=== PATIENT | female | born 1980 | race Two or more races ===

== ENCOUNTER 2017-01-24 13:30 | Outpatient (CLI) | payer OTHER ==
[2017-01-24 14:06] VITALS: BP 121/73
[2017-01-24] MEDS ORDERED: ZOLOFT50 MG PO (14:44)
[2017-01-24] MEDS ORDERED: IRON325 MG PO (14:44)
[2017-01-24 21:59] LABS: CANDIDA DNA PROBE NEGATIVE
[2017-01-24 22:00] LABS: GARDNERELLA DNA PROBE NEGATIVE; INTERNAL CONTROL VALID? YES
== END 2017-01-24 15:50 | disposition home or self-care (01) ==
LOC: LDRP-OP → 2WEST 13:31 → LDRP-OP 05-20 13:54
PROVIDERS: Advanced Practice Midwife
DX: O23.592 Infection of other part of genital tract in pregnancy, second trimester (principal); N76.0 Acute vaginitis; Z3A.27 27 weeks gestation of pregnancy
CPT/HCPCS: 59025; 81003; 87086; 87480; 87510; 87660; G0378

== ENCOUNTER 2017-04-17 15:05 | Outpatient (CLI) | payer OTHER ==
[~2017-04-17] VITALS: Ht 165.1 cm; Wt 101.2 kg
[~2017-04-17 15:05] MED LIST: IRON325 MG PO; ZOLOFT50 MG PO
[2017-04-17 15:46] VITALS: BP 120/74
[2017-04-17 16:21] LABS: EOSINOPHIL (%) 0.4 % (0-5); HEMATOCRIT 32.8 % (36.0-46.0); IMMATURE GRANULOCYTE (%) 0.5 % (0.0-0.7); LYMPHOCYTE COUNT 1.6 K/uL (1.0-2.8); MCH 30.2 PG (29.0-34.0); MCHC 32.6 G/DL (30.0-36.0); MCV 92.7 FL (83-99); MEAN PLAT.VOLUME 9.7 uM^3 (9.5-12.4); MONOCYTE (%) 7.5 % (3-12); MONOCYTE COUNT 0.6 K/uL (0-0.8); NEUTROPHIL (%) 72.1 % (45-76); PLATELET COUNT 238 K/uL (156-360); RBC DIS.WIDTH-CV 13.5 % (11.8-14.6); RBC DIS.WIDTH-SD 45.4 % (39-53); RED BLOOD COUNT 3.54 M/uL (3.80-5.20); WHITE BLOOD COUNT 8.3 K/uL (4.1-10.2)
[2017-04-18] MEDS ORDERED: ZOVIRAX400 MG PO (02:38)
[2017-04-18] MEDS ORDERED: PRENATAL TABLE1 EAC3 PO (02:38)
[2017-04-19 16:39] LABS: HSV-2 IgG Antibody >23.00 Index (<0.90)
== END 2017-04-17 16:45 | disposition home or self-care (01) ==
LOC: LDRP-OP → 2WEST 15:08 → LDRP-OP 05-18 18:07
PROVIDERS: Advanced Practice Midwife
DX: O47.1 False labor at or after 37 completed weeks of gestation (principal); O98.313 Other infections with a predominantly sexual mode of transmission complicating pregnancy, third trimester; A60.09 Herpesviral infection of other urogenital tract; Z3A.40 40 weeks gestation of pregnancy; O09.523 Supervision of elderly multigravida, third trimester
CPT/HCPCS: 59025; 85025; 86695 90; 86696 90; G0378

== ENCOUNTER 2017-04-18 02:03 | Inpatient (IN) | payer OTHER ==
[~2017-04-18] VITALS: Ht 162.6 cm; Wt 101.2 kg
[2017-04-18] VITALS (8 sets, daily range): BP systolic 107–126; BP diastolic 54–72
[2017-04-18] MEDS ORDERED: PRENATAL TABLE1 EAC3 PO (02:38)
[2017-04-18] MEDS ORDERED: ZOVIRAX400 MG PO (02:38)
[2017-04-19 05:50] LABS: BASOPHIL COUNT 0.1 K/uL (0-0.1); EOSINOPHIL (%) 0.8 % (0-5); EOSINOPHIL COUNT 0.1 K/uL (0-0.3); HEMATOCRIT 29.7 % (36.0-46.0); IMMATURE GRANULOCYTE (%) 0.6 % (0.0-0.7); IMMATURE GRANULOCYTE COUNT 0.1 K/uL; INSTRUMENT ABS NEUTROPHIL CT 7.3 K/uL; LYMPHOCYTE COUNT 2.4 K/uL (1.0-2.8); MCH 31.3 PG (29.0-34.0); MCV 94.9 FL (83-99); MEAN PLAT.VOLUME 9.9 uM^3 (9.5-12.4); MONOCYTE COUNT 0.7 K/uL (0-0.8); NEUTROPHIL (%) 68.9 % (45-76); NEUTROPHIL COUNT 7.3 K/uL (1.8-6.4); PLATELET COUNT 236 K/uL (156-360); RBC DIS.WIDTH-CV 13.9 % (11.8-14.6); RBC DIS.WIDTH-SD 47.2 % (39-53); RED BLOOD COUNT 3.13 M/uL (3.80-5.20); WHITE BLOOD COUNT 10.6 K/uL (4.1-10.2)
[2017-04-19 07:43] VITALS: BP 132/74
[2017-04-19 15:24] VITALS: BP 125/76
[2017-04-20 07:12] VITALS: BP 121/69
== END 2017-04-20 13:29 | disposition home or self-care (01) | DRG 774 ==
LOC: LDRP-OP 02:03 → 2WEST 02:04 → LDRP-OP 23:43 → 2WEST 04-20 13:29 → LDRP-OP 05-18 18:50
PROVIDERS: Advanced Practice Midwife
DX: O99.824 Streptococcus B carrier state complicating childbirth (principal); D62 Acute posthemorrhagic anemia; O98.32 Other infections with a predominantly sexual mode of transmission complicating childbirth; Z3A.39 39 weeks gestation of pregnancy; O99.214 Obesity complicating childbirth; E66.9 Obesity, unspecified; Z37.0 Single live birth; A60.03 Herpesviral cervicitis; O70.0 First degree perineal laceration during delivery; G43.909 Migraine, unspecified, not intractable, without status migrainosus; O99.354 Diseases of the nervous system complicating childbirth; O99.02 Anemia complicating childbirth; O77.0 Labor and delivery complicated by meconium in amniotic fluid; Z68.38 Body mass index [BMI] 38.0-38.9, adult
CPT/HCPCS: 85025; 87254